=== PATIENT | male | born 1990 | race Caucasian/White ===

== ENCOUNTER 2019-07-19 17:50 | Emergency (ER) | payer MEDICARE, MEDICAID, SELFPAY ==
[2019-07-19 18:06] VITALS: BP 114/58; PULSE 93; RESP 20; TEMP 36.9; O2SAT 99
--- NOTE | 2019-07-19 18:37 | ED.NAVMDI ---
HPI - Nausea/Vomiting/Diarrhea General Chief complaint: Nausea/Vomiting/Diarrhea Stated complaint: nausea/fatigue Time Seen by Provider: 07/19/19 18:37 Source: patient and RN notes reviewed Mode of arrival: ambulatory Limitations: no limitations History of Present Illness HPI Narrative: 29-year-old male who presents to [facility] with complaints of episodes of nausea related to anxiety and depression states he missed 3 days of work and is required to have a release to return to work. Patient denies any abdominal pain, no fever, chills no headaches. Patient denies any vomiting or diarrhea episodes. Patient is under psychiatric care sees Dr Light and states that he has difficulty with nausea related to his anxiety. MD elicited complaint: nausea and other (fatigue) Pertinent past history: other (anxiety) Onset (ago): day(s) Description of vomiting: other (no vomiting) Description of diarrhea: other (no diarrhea) Associated nausea: Yes Associated abdominal pain: No Location of pain: none Exacerbating factors: other (stress and anxiety) Relieving factors: rest and other (taking pepcid and Lexapro) Associated symptoms: anxiety and fatigue Treatment prior to arrival: other (prescribed meds) Related Data Home Medications Medication Instructions Recorded Confirmed atorvastatin 10 mg PO DAILY 07/19/19 07/19/19 ergocalciferol (vitamin D2) 1,250 mcg PO WEEKLY 07/19/19 07/19/19 [Vitamin D2] escitalopram oxalate 10 mg PO DAILY 07/19/19 07/19/19 famotidine 20 mg PO DAILY 07/19/19 07/19/19 fenofibrate 160 mg PO DAILY 07/19/19 07/19/19 nebivolol [Bystolic] 5 mg PO DAILY 07/19/19 07/19/19 quetiapine 100 mg PO HS 07/19/19 07/19/19 topiramate 50 mg PO BID 07/19/19 07/19/19 umeclidinium-vilanterol [Anoro 1 inh INHALATION DAILY 07/19/19 07/19/19 Ellipta] Allergies Allergy/AdvReac Type Severity Reaction Status Date / Time No Known Allergies Allergy Verified 07/19/19 18:37 Review of Systems Review of Systems: Narrative: CONSTITUTIONAL: Denies fever, chills, or sweats. EYES: Denies visual changes, redness, or discharge. ENT: Denies rhinorrhea, congestion, sore throat, or otalgia. CARDIOVASCULAR: Denies chest pain, palpitations, or edema. RESPIRATORY: Denies cough or dyspnea GASTROINTESTINAL: Denies abdominal pain,intermittent nausea, denies any vomiting or diarrhea. GENITOURINARY: Denies dysuria or hematuria. SKIN: Denies rash or itching MUSCULOSKELETAL: Denies back pain, joint pain, or myalgia. NEUROLOGIC: Denies headache, numbness, or weakness. PSYCHIATRIC: positive anxiety or depression. All systems reviewed & are unremarkable except as noted in HPI and below PMFSH Past Medical History Medical History (Updated 07/23/19 @ 15:51 by Ava Uriostegui NP) Anxiety COPD (chronic obstructive pulmonary disease) Depression GERD (gastroesophageal reflux disease) Hyperlipidemia Hypertension Schizoaffective disorder Tachycardia Surgical History Surgical History (Updated 07/23/19 @ 15:51 by Ava Uriostegui NP) History of hernia repair Social History Social History (Updated 07/23/19 @ 15:52 by Ava Uriostegui NP) Smoking packs per day: 1.5 Smoking cigarettes per day: 30.0 Years smoked: 18 Smoking pack-years: 27.00 Smoking status: Current every day smoker Tobacco type: cigarettes Living arrangements: with family Gender identity (if verbalized by the patient): Male Comments At time of signature, agree with nursing past medical, surgical, social history. There is no relevant family history pertinent to the presenting complaint Exam Narrative: Exam Narrative: GENERAL: Well-appearing, well-nourished, and in no acute distress. HEAD: Normocephalic, atraumatic. EYES: PERRLA and EOMI. ENT: Nares clear, no rhinorrhea or epistaxis. Mucous membranes moist.TM's normal with good light refles, throat pink with no redness or lesion or tonsil enlargement NECK: Supple.no lymphadenopathy CHEST: Clear to auscultation.
== END 2019-07-19 19:00 | disposition home or self-care (01) ==
PROVIDERS: Emergency Provider Registered Nurse
DX: F41.9 Anxiety disorder, unspecified (principal); R11.0 Nausea
CPT/HCPCS: 99201; G0463

== ENCOUNTER 2024-08-21 20:59 | Emergency (ER) | payer OTHER, SELFPAY ==
--- NOTE | ~2024-08-21 | XR_ITS ---
Clinical Indication: Palpitations PA and lateral views of the chest: Comparison: None Findings: The lungs are clear, without evidence of focal consolidation or pleural effusion. Cardiome diastinal silhouette is within normal limits. Bones and soft tissues are unremarkable. Impression: Normal chest. Reviewed, dictated and finalized at location . Impression: Normal chest.
--- NOTE | 2024-08-21 21:07 | ECG_ITS ---
Test Date: 2024-08-21 21:10:56 Measurements Intervals Industry Rate: 76 P: 63 CA: 144 QRS: 46 QRSD: 89 T: 66 QT: 367 QTc: 413 Interpretive Statements SINUS RHYTHM BASELINE ARTIFACT- I, II, III, AVR, AVL, AVF, V1, V3-V4 NORMAL ECG No previous ECG available for comparison Electronically Signed On 08-22-2024 06:10:58 CDT by Thiago Thurman D.O.
--- NOTE | 2024-08-22 01:08 | PC.NURSE ---
pt taken to x-ray in W/C by tech
--- OUTSIDE RECORDS SUMMARY | 2024-08-22 01:28 | XMS_ITS | Clinical Summary ---
Author Organization [facility] Address [address] [place] [address] Phone Care Team Providers Care Photographic Hand Developer Name Role Phone Jose C Chung MD Primary Care Provider [phone] Allergies Active Allergy Reactions Criticality Noted Date Comments Haloperidol Unknown 09/27/2022 Medications Anoro Ellipta 62.5-25 MCG/ACT AEROSOL POWDER, BREATH ACTIVATED INHALE 1 PUFF BY MOUTH EVERY DAY 09/08/2022 Active atorvastatin (LIPITOR) 10 MG Tablet Take 10 mg by mouth daily. 09/08/2022 Active cyclobenzaprine (FLEXERIL) 10 MG Tablet TAKE 1 TABLET BY MOUTH EVERY 8 HOURS NEEDED 09/08/2022 Active escitalopram (LEXAPRO) 10 MG Tablet Take 10 mg by mouth daily. 09/08/2022 Active famotidine (PEPCID) 20 MG Tablet Take 20 mg by mouth daily. 09/08/2022 Active fenofibrate 160 MG Tablet Take 160 mg by mouth daily. 06/25/2022 Active meloxicam (MOBIC) 15 MG Tablet Take 1 Tablet by mouth daily. 07/03/2022 Active nebivolol (BYSTOLIC) 5 MG Tablet Take 5 mg by mouth daily. 09/13/2022 Active Topiramate 50 MG Tablet Take 1 Tablet by mouth 2 times daily. 09/08/2022 Active ergocalciferol (VITAMIN D) 58243 UNIT Capsule TAKE 1 CAPSULE BY MOUTH ONCE WEEKLY 09/08/2022 Active ketorolac (TORADOL) 10 MG Tablet Take 1 Tablet by mouth every 6 hours as needed for Mild or more severe pain. 20 Tablet 02/05/2023 Active ondansetron (ZOFRAN-ODT) 4 MG TABLET DISPERSIBLE Take 1 Tablet by mouth every 8 hours as needed for Nausea - 1st line. 10 Tablet 02/05/2023 Active tamsulosin (FLOMAX) 0.4 MG Capsule Take 1 Capsule by mouth daily. 90 Capsule 02/05/2023 Active Social History Tobacco Use Types Packs/Day Years Used Date Smoking Tobacco: Never Smokeless Tobacco: Never Tobacco Cessation:Counseling Given: Not Answered Alcohol Use Standard Drinks/Week Comments Yes 0 (1 standard drink = 0.6 oz pur e alcohol) rare Sex and Gender Information Value Date Recorded Sex Assigned at Not on file Legal Sex Male 11:16 PM CDT Gender Identity Not on file Sexual Orientation Not on file Last Filed Vital Signs Vital Sign Reading Time Taken Comments Blood Pressure 120/77 02/05/2023 5:00 PM CDT Pulse 82 02/05/2023 1:16 PM CDT Temperature 37.6 C (99.6 F) 02/05/2023 1:16 PM CDT Respiratory Rate 17 02/05/2023 1:16 PM CDT Oxygen Saturation 100% 02/05/2023 5:0 0 PM CDT Inhaled Oxygen Concentration - - Weight 72.8 kg (160 lb 7.9 oz) 02/05/2023 1:16 PM CDT BMI incorrect due to technical error Height 175.3 cm (5' 9 ) 02/05/2023 1:16 PM CDT BMI incorrect due to technical error Body Mass Index 23.7 02/05/2023 1:16 PM CDT Plan of Treatment Health Maintenance Due Date Last Done Comments Hepatitis C Virus (HCV) Screening 1990 TdaP Immunization 1990 Hepatitis B Immunization (1 of 3 - 19+ 3-dose series) 2009 Influenza Immunization (#1) 2023 SARS-COV-2 Immunization (2023- season) 2023 Respiratory Syncytial Virus (RSV) Immunization (Adult) (1 - 1-dose 75+ series) 2065 Meningococcal Immunization (ACWY) Aged Out No longer eligible based on patient's age to complete this topic Pneumococcal Immunization Combined Aged Out No longer eligible based on patient's age to complete this topic Rotavirus Immunization Aged Out No lo nger eligible based on patient's age to complete this topic Insurance MEDICARE C AETNA [facility] Care Teams Photographic Hand Developer Relationship Specialty Start Date End Date Jose C Chung MD [address] [place] [id number] PCP - General Internal Medicine 09/27/22
[2024-08-22 01:30] VITALS: BP 122/80; PULSE 66; RESP 19; O2SAT 99
[2024-08-22] MEDS: SODIUM CHLORIDE 0.9% IV 500 ML 50 ML IV CONT (01:32)
[2024-08-22 01:51] LABS: Basophils Absolute Auto 0.1 K/mm3 (0.0-0.1); Basophils Percent Auto 0.5 % (0.2-1.2); Eosinophils Absolute Auto 0.1 K/mm3 (0-0.3); Eosinophils Percent Auto 0.5 % (0-4.4); Hematocrit 43.1 % (42.0-52.0); Hemoglobin 14.4 g/dL (14.0-18.0); Lymphocytes Absolute Auto 2.03 K/mm3 (0.9-3.2); Lymphocytes Percent Auto 21.2 % (18.3-44.2); Mean Corpuscular HGB Conc 33.4 g/dl (32-36); Mean Corpuscular Hemoglobin 31.4 pg (26-34); Mean Corpuscular Volume 93.9 fl (80-100); Mean Platelet Volume 8.8 fl (7.4-10.4); Monocytes Absolute Auto 0.6 K/mm3 (0.1-0.6); Monocytes Percent Auto 5.9 % (2.6-8.5); Neutrophils Absolute Auto 6.8 K/mm3 (1.3-6.7); Neutrophils Percent Auto 70.9 % (45.5-73.1); Platelet Count Result 293 k/mm3 (150-375); Red Blood Count 4.59 M/mm3 (4.6-6.20); Red Cell Distribution Width 12.8 % (11.5-14.5); White Blood Count 9.6 K/mm3 (4.5-10.0)
[2024-08-22 01:57] LABS: Alanine Aminotransferase 34 U/L (6-50); Albumin Level 4.3 g/dL (3.5-5.1); Alkaline Phosphatase 97 U/L (38-126); Anion Gap 13 mmol/L (4-12); Aspartate Amino Transferase 24 U/L (17-59); Bilirubin,Total 0.3 mg/dL (0.2-1.3); Blood Urea Nitrogen 13 mg/dL (9-20); Calcium 9.3 mg/dL (8.4-10.2); Carbon Dioxide 17 mmol/L (22-30); Chloride 111 mmol/L (98-107); Estimated CRCL calculation 82 ml/min; Estimated Glomerular Filt Rate > 60; Glucose 93 mg/dL (65-110); Potassium 3.9 mmol/L (3.4-5.0); Sodium 141 mmol/L (137-145)
--- NOTE | 2024-08-22 04:05 | ED.ARRPALP ---
HPI - Arrhythmia/Palpitations General Chief Complaint: Chest Pain Stated Complaint: cardiac distress Time Seen by Provider: 08/22/24 00:48 Source: patient Mode of arrival: ambulatory Limitations: no limitations History of Present Illness HPI narrative: This is a 34-year-old male, with history of tachycardia, presents to the emergency department complaining of palpitations. The patient states approximately 30 minutes prior to arrival, he felt his heart racing, this was associated with tingling and numbness in the bilateral arms. He states the sensation lasted approximately 15 minutes and then resolved. He has felt intermittent short episodes since then. He denies any recent changes medications, nausea, vomiting, bleeding of any kind or loss of consciousness. He has no other complaints at this time. Related Data Home Medications ?Medication ?Instructions ?Recorded ?Confirmed ?Last Taken ?Type atorvastatin 10 mg tablet 10 mg PO DAILY 07/19/19 07/19/19 Unknown History ergocalciferol (vitamin D2) 1,250 1,250 mcg PO WEEKLY 07/19/19 07/19/19 Unknown History mcg (50,000 unit) capsule (Vitamin D2) escitalopram oxalate 10 mg tablet 10 mg PO DAILY 07/19/19 07/19/19 Unknown History famotidine 20 mg tablet 20 mg PO DAILY 07/19/19 07/19/19 Unknown History fenofibrate 160 mg tablet 160 mg PO DAILY 07/19/19 07/19/19 Unknown History nebivolol 5 mg tablet (Bystolic) 5 mg PO DAILY 07/19/19 07/19/19 Unknown History quetiapine 100 mg tablet 100 mg PO HS 07/19/19 07/19/19 Unknown History topiramate 50 mg tablet 50 mg PO BID 07/19/19 07/19/19 Unknown History umeclidinium 62.5 mcg-vilanterol 1 inh inhalation DAILY 07/19/19 07/19/19 Unknown History 25 mcg/actuation powdr for inhalation (Anoro Ellipta) Allergies Allergy/AdvReac Type Severity Reaction Status Date / Time No Known Allergies Allergy Verified 08/21/24 21:00 Review of Systems Review of Systems: All systems reviewed & are unremarkable except as noted in HPI and below PMFSH Past Medical History Medical History Tachycardia Depression Anxiety Schizoaffective disorder Hyperlipidemia Hypertension COPD (chronic obstructive pulmonary disease) GERD (gastroesophageal reflux disease) Surgical History Surgical History History of hernia repair Social History Social History Smoking packs per day: 1.5 Smoking cigarettes per day: 30.0 Years smoked: 18 Smoking pack-years: 27.00 Smoking status: Current every day smoker Tobacco type: cigarettes Living arrangements: with family Gender identity (if verbalized by the patient): Male Exam Narrative: GENERAL: Well-developed, well-nourished, and in no acute distress. HEAD: Normocephalic, atraumatic. EYES: PERRLA and EOMI. CHEST: Clear to auscultation. No respiratory distress. No wheezes rales or rhonchi HEART: Regular rate and rhythm. No murmur heard. Normal peripheral pulses. ABDOMEN: Soft, nontender, nondistended, normal active bowel sounds. EXTREMITIES: Normal range of motion. No edema. SKIN: Warm, dry, no rash. NEURO: Alert and oriented x3. No focal deficit. Moving all 4 limbs spontaneously PSYCH: Normal mood and affect. Course Course Emergency Course: 04:05 - EKG not concerning for arrhythmia or ischemia. CBC unremarkable. Chemistries not concerning for JANELLE. Chloride slightly elevated at 111 and bicarb is 17 without other acute changes. Chest x-ray not concerning for pneumonia, pneumothorax or other consolidation. The patient may have had an episode of SVT, however while monitored here and no significant events. One episode of V-tach was reported by the monitor however it does not appear consistent my review. Will discharge with recommendation for primary care follow-up and Holter monitoring. I discussed the findings and recommendations with the patient. Discussed return and emergency precautions including signs/symptoms of ACS, arrhythmia and respiratory distress. The patient voiced understanding and agreement with the plan. All questions answered to his satisfaction. Vital Signs Vital signs: Vital Signs Oxygen Delivery Room Air 08/22/24 01:23 Pulse Rate 66 08/22/24 01:30 Respiratory Rate 19 08/22/24 01:30 Blood Pressure 122/80 08/22/24 01:30 Pulse Oximetry 99 08/22/24 01:30 Oxygen Delivery Room Air 08/22/24 01:23 MDM - Arrhythmia/Palpitations MDM Narrative Medical decision making narrative: Plan: EKG, cardiac monitoring, imaging, IV fluids, labs, reassess Differential Diagnosis Differential diagnosis: Likely palpitations, artial fibrillation, artial flutter, supraventricular tachycardia and other (Metabolic abnormality, dehydration, anemia, other) Lab Data 08/22/24 01:31 08/22/24 01:31 Labs: Lab Results 08/22/24 Range/Units 01:31 WBC 9.6 (4.5-10.0) K/mm3 RBC 4.59 L (4.6-6.20) M/mm3 Hgb 14.4 (14.0-18.0) g/dL Hct 43.1 (42.0-52.0) % MCV 93.9 (80-100) fl MCH 31.4 (26-34) pg MCHC 33.4 (32-36) g/dl RDW 12.8 (11.5-14.5) % Plt Count 293 (150-375) k/mm3 MPV 8.8 (7.4-10.4) fl Immature Gran % (Auto) 1.0 H (0-0.5) % Neut % (Auto) 70.9 (45.5-73.1) % Lymph % (Auto) 21.2 (18.3-44.2) % Roberts % (Auto) 5.9 (2.6-8.5) % Eos % (Auto) 0.5 (0-4.4) % Baso % (Auto) 0.5 (0.2-1.2) % Lymph # (Auto) 2.03 (0.9-3.2) K/mm3 Roberts # (Auto) 0.6 (0.1-0.6) K/mm3 Eos # (Auto) 0.1 (0-0.3) K/mm3 Baso # (Auto) 0.1 (0.0-0.1) K/mm3 Abs Immat Gran (auto) 0.10 H (0.00-0.031) K/mm3 Absolute Neuts (auto) 6.8 H (1.3-6.7) K/mm3 Absolute Nucleated RBC 0.000 (0.0-0.012) K/mm3 Nucleated RBC % 0.0 (0.0-0.2) % Sodium 141 (137-145) mmol/L Potassium 3.9 (3.4-5.0) mmol/L Chloride 111 H (98-107) mmol/L Carbon Dioxide 17 L (22-30) mmol/L Anion Gap 13 H (4-12) mmol/L BUN 13 (9-20) mg/dL Creatinine 1.13 (0.7-1.3) mg/dL Estim Creat Clear Calc 82 ml/min Estimated GFR > 60 (59 - ) Glucose 93 (65-110) mg/dL Calcium 9.3 (8.4-10.2) mg/dL Magnesium 2.0 (1.6-2.3) mg/dL Total Bilirubin 0.3 (0.2-1.3) mg/dL AST 24 (17-59) U/L ALT 34 (6-50) U/L Alkaline Phosphatase 97 (38-126) U/L Total Protein 7.0 (6.3-8.2) g/dL Albumin 4.3 (3.5-5.1) g/dL ECG Data EKG #1: Attestation: I personally reviewed and interpreted this ECG as follows: ECG completion date: 08/21/24 ECG completion time: 21:10 Prior ECG tracings: not available for review Interpretation: Sinus rhythm, rate 76, normal axis, no ST segment elevations or T-wave inversions concerning for ischemia, normal intervals with QTC of 413. Discharge Plan Discharge Clinical Impression: Palpitations Patient Disposition: Home Condition: Stable Instructions: Antibiotic Form, Heart Palpitations (ED) Additional Instructions: You were seen in the emergency department. Your EKG is not concerning for abnormal heart rhythm. A chest x-ray was not concerning for collapsed lung, mass or infection. Labs are not concerning for liver or kidney injury and your electrolytes appear to be within normal range. I recommend following up with your primary care doctor for repeat Holter monitoring. If you develop chest pain, shortness of breath, loss of consciousness, or if you have other emergent concerns for life, limb, or eyesight, return to the emergency department. Patient Language: Tuvaluan Prescriptions: No Action atorvastatin 10 mg Tablet 10 mg PO DAILY quetiapine 100 mg Tablet 100 mg PO HS famotidine 20 mg Tablet 20 mg PO DAILY ergocalciferol (vitamin D2) [Vitamin D2] 1,250 mcg (50,000 unit) Capsule 1,250 mcg PO WEEKLY escitalopram oxalate 10 mg Tablet 10 mg PO DAILY topiramate 50 mg Tablet 50 mg PO BID fenofibrate 160 mg Tablet 160 mg PO DAILY Bystolic 5 mg Tablet 5 mg PO DAILY Anoro Ellipta 62.5-25 mcg/actuation Blister With Device 1 inh INHALATION DAILY Follow-up/Referrals: PHYSICIAN NOT ON STAFF,NONSTAFF [Primary Care Provider] - 2 Weeks Time of Disposition: 04:07
[2024-08-22 04:16] VITALS: BP 120/78; PULSE 72; RESP 17; O2SAT 99
== END 2024-08-22 04:26 | disposition home or self-care (01) ==
PROVIDERS: Emergency Provider Preventive Medicine Aerospace Medicine
DX: R00.2 Palpitations (principal); F41.9 Anxiety disorder, unspecified; F32.A Depression, unspecified; F25.9 Schizoaffective disorder, unspecified; E78.5 Hyperlipidemia, unspecified; I10 Essential (primary) hypertension; K21.9 Gastro-esophageal reflux disease without esophagitis; J44.9 Chronic obstructive pulmonary disease, unspecified; F17.210 Nicotine dependence, cigarettes, uncomplicated; Z79.899 Other long term (current) drug therapy
CPT/HCPCS: 36415; 71046; 80053; 83735; 85025; 93005; 96360; 96361; 99283; J7040